=== PATIENT | female | born 1995 | race Caucasian/White ===

== ENCOUNTER 2023-06-21 15:13 | Outpatient (CLI) | payer OTHER, SELFPAY | END 2023-06-21 15:14 | disposition home or self-care (01) | PROVIDERS: PCP Family Medicine; Visit Provider Family Medicine | DX: Z00.00 Encounter for general adult medical examination without abnormal findings (principal); R53.83 Other fatigue; Z13.6 Encounter for screening for cardiovascular disorders | CPT/HCPCS: 80048; 80061; 84443 ==

== ENCOUNTER 2024-01-16 12:52 | Outpatient (CLI) | payer OTHER, SELFPAY ==
--- NOTE | 2024-01-16 13:00 | US_ITS ---
Patient: SALMA Zaman GONZALEZ Facility:?[facility] Patient ID:?[id number] Site Patient ID:?[id number]. Site :?[id number] Study:?US-OB Pelvis OB TV-01/16/2024 1:49:57 PM Ordering Physician:GOGO SIFUENTES CNM Final Report: INDICATION: Dating and viability. Technique: Transabdominal and transvaginal OB ultrasound. Findings : Single viable intrauterine gestation of 11 weeks and 5 days duration with an expected date of delivery 08/01/2024. heart rate 178 beats per minute and regular. [place]-rump length 4.9 cm and the mean diameter of the gestational sac 4.8 cm. The yolk sac measures 5.3 mm in diameter and is unremarkable. The right ovary measures 2.2 x 1.2 x 1.3 cm and the left ovary measures 2.9 x 1.4 x 1.4 cm. A corpus luteum cyst left ovary. IMPRESSION: 1. Single viable intrauterine gestation of 11 weeks and 5 days duration with an expected date of delivery 08/01/2024. 2. heart rate 178 beats per minute and regular. 3. [place]-rump length 4.9 cm and the mean diameter of the gestational sac 4.8 cm. Dictated by Yonas Clayton MD @ 01/17/2024 1:07:43 PM Signed by:?Yonas Clayton MD @01/17/2024 1:07:43 PM (Electronic Signature)
== END 2024-01-16 12:53 | disposition home or self-care (01) ==
LOC: US 12:52
PROVIDERS: PCP Family Medicine; Visit Provider Advanced Practice Midwife
DX: Z34.91 Encounter for supervision of normal pregnancy, unspecified, first trimester (principal); Z3A.11 11 weeks gestation of pregnancy
CPT/HCPCS: 76817

== ENCOUNTER 2024-01-16 14:43 | Outpatient (CLI) | payer OTHER, SELFPAY | END 2024-01-16 14:44 | disposition home or self-care (01) | LOC: NFLDREF 14:43 | PROVIDERS: PCP Family Medicine; Visit Provider Advanced Practice Midwife | DX: Z34.91 Encounter for supervision of normal pregnancy, unspecified, first trimester (principal); Z3A.11 11 weeks gestation of pregnancy | CPT/HCPCS: 84443; 86592; 86703; 86704; 86706; 86762; 86787; 86803; 86850; 86900; 86901; 87086; 87340 ==

== ENCOUNTER 2024-03-17 14:50 | Outpatient (CLI) | payer OTHER, SELFPAY ==
--- NOTE | 2024-03-17 15:00 | CRLHL7_ITS ---
For Patients: As a result of the Century Cures Act, medical imaging exams and procedure reports are released immediately into your electronic medical record. You may view this report before your referring provider. If you have questions, please contact your health care provider. OBSTETRICAL ULTRASOUND INDICATION: Encounter for supervision of normal . VARGAS by ULTRASOUND: 08/01/2024. GA: 20w 3d. COMPARISON: 01/16/2024. TECHNIQUE: Transabdominal pelvic ultrasound. FINDINGS: position: Vertex. Cervix: Visualized. Length of closed cervix: 3.2 cm. Placenta position: Anterior. Placenta tip to internal os: 0.9 cm. Umbilical cord: 3-vessel cord. Placental insertion: Central. Amniotic fluid: 4.9 cm SDP ANATOMY SURVEY: Observed Structures Cerebellum: 2.2 cm, 22 weeks 2 days. Cisterna magna: 6.0 mm. Nuchal fold: 6.5 mm. Lateral ventricle: 6.7 mm. CSP Midline falx Choroid plexus Spine Stomach Abdominal cord insert Urinary bladder Kidneys Diaphragm Nose/lips Orbital view Profile Upper extremities Lower extremities Hands Feet 4-chamber heart LVOT RVOT 3VV 3VTV Biometry: BPD: 4.6 cm, 20 weeks 0 days, 29%. HC: 17.2 cm, 19 weeks 5 days, 14%. AC: 14.9 cm, 20 weeks 1 day, 35%. FL: 3.3 cm, 20 weeks 2 days, 36%. FL/AC: 22.05%. HC/AC ratio: 1.15. heart rate: 147 bpm. age by this ultrasound: 20 weeks 3 days. VARGAS by this ultrasound: 08/01/2024. Estimated weight: 336 grams (- pounds 12 ounces). Percentile by VARGAS: 31%. IMPRESSION: 1. Measurements are consistent with dates. 2. Normal anatomic survey. 3. Low-lying anterior placenta located 9 mm from the cervical os. Follow-up recommended. Bjorn Kothari M.D. Body/Diagnostic Radiologist [email or web address] SP/Dictated by: Bjorn Kothari MD @ 03/18/2024 11:27:00 AM (Electronically Signed)
== END 2024-03-17 14:51 | disposition home or self-care (01) ==
LOC: US 14:50
PROVIDERS: PCP Family Medicine; Visit Provider Advanced Practice Midwife
DX: Z34.92 Encounter for supervision of normal pregnancy, unspecified, second trimester (principal); O44.42 Low lying placenta NOS or without hemorrhage, second trimester; Z3A.20 20 weeks gestation of pregnancy
CPT/HCPCS: 76805

== ENCOUNTER 2024-04-14 21:10 | Outpatient (CLI) | payer OTHER, SELFPAY ==
[2024-04-14 21:25] VITALS: BP 128/71; PULSE 75; TEMP 36.8
--- NOTE | 2024-04-14 22:33 | PC.OBNST ---
NST Note NST Note Start: 04/14/24 21:20 Freq: ONCE Status: Active Protocol: Document 04/14/24 22:31 MAYCOL (Rec: 04/14/24 22:32 MAYCOL [id number]) NST Note 1 Para (# of births) 0 EDC 08/01/24 Gestational Age In Weeks & Days 24 Weeks & 3 Days Patient Presented with Complaint(s) of Decreased movement Appropriate for Gestational Age Yes RN Daniel Raman, ACE Date 04/14/24 Appropriate for Gestational Age Yes ACE Kern RN Date 04/14/24 OB NST charge Yes Complete NST Note via Write Note Yes The provider's electronic signature indicates the NST is reactive/appropriate for gestational age. *Note to provider: If an addendum is required, open the patient's chart and click on the note under the Nurse/Allied Health tab.
== END 2024-04-14 21:52 | disposition home or self-care (01) ==
LOC: OB OUT 21:10 → OB 21:11
PROVIDERS: PCP Family Medicine; Visit Provider Advanced Practice Midwife
DX: O36.8120 Decreased fetal movements, second trimester, not applicable or unspecified (principal); Z3A.24 24 weeks gestation of pregnancy
CPT/HCPCS: 59025; G0463

== ENCOUNTER 2024-05-14 07:55 | Outpatient (CLI) | payer OTHER, SELFPAY | END 2024-05-14 07:56 | disposition home or self-care (01) | LOC: NFLDREF 07:56 | PROVIDERS: PCP Family Medicine; Visit Provider Midwife | DX: O26.899 Other specified pregnancy related conditions, unspecified trimester (principal); Z67.91 Unspecified blood type, Rh negative | CPT/HCPCS: 86592; 86850; J2791 ==

== ENCOUNTER 2024-05-15 11:46 | Outpatient (CLI) | payer OTHER, SELFPAY ==
[2024-05-15 11:56] VITALS: PULSE 71; O2SAT 99
[2024-05-15 11:57] VITALS: BP 127/75; PULSE 74; RESP 16; TEMP 36.5
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
== END 2024-05-15 12:42 | disposition home or self-care (01) ==
LOC: OB OUT 11:46 → OB 11:49
PROVIDERS: PCP Family Medicine; Visit Provider Advanced Practice Midwife
DX: O26.893 Other specified pregnancy related conditions, third trimester (principal); S39.91XA Unspecified injury of abdomen, initial encounter; Z3A.28 28 weeks gestation of pregnancy
CPT/HCPCS: 59025; G0463

== ENCOUNTER 2024-06-08 07:13 | Outpatient (CLI) | payer OTHER, SELFPAY ==
--- NOTE | 2024-06-08 07:15 | CRLHL7_ITS ---
For Patients: As a result of the Century Cures Act, medical imaging exams and procedure reports are released immediately into your electronic medical record. You may view this report before your referring provider. If you have questions, please contact your health care provider. INDICATION: 29 year-old female. Assess interval growth and placental location. TECHNIQUE: Transabdominal obstetrical ultrasound. COMPARISON: March 17, 2024. FINDINGS: There is a single living intrauterine in vertex presentation. The cervix is not well seen. Anterior placenta. The placental tip is 4.8 cm away from the internal cervical os, previously 0.9 cm. heart rate 138 beats per minute. Normal amniotic fluid volume. Single deepest pocket measurement 4.3 cm, previously 4.9 cm. biometric indices: Biparietal diameter 7.3 cm, 29 weeks 2 days, less than the 3rd percentile. Head circumference 28.15 cm, 30 weeks 6 days, less than the 3rd percentile. Abdominal circumference 27 cm, 31 weeks 0 days, 16th percentile. Femur length 6.4 cm, 32 weeks 6 days, 55th percentile. Composite calculated ultrasound age 31 weeks 0 days with a sonographic due date of August 10, 2024. Estimated weight 1771 g which lies at the 17th percentile. The head to abdominal circumference ratio is within normal limits at 1.04 (0.96-1.17). IMPRESSION: 1. Single living intrauterine in vertex presentation. Anterior placenta without placenta previa or marginal placenta. 2. Normal amniotic fluid volume. 3. Composite calculated ultrasound age 31 weeks 0 days with a sonographic due date of August 10, 2024. 4. Please note the biometric indices indicate that the biparietal diameter and head circumference are below the 3rd percentile. Dictated by Julio Lewis MD @ 06/08/2024 10:27:26 AM (Electronically Signed)
--- OUTSIDE RECORDS SUMMARY | 2024-06-08 07:15 | XMS_ITS | Encounter Summary ---
Author Organization [facility] Address [address] [address] Phone Care Team Providers Care Utility Gelatin Maker Name Role Phone Elsewhere, Pcp Unavailable Unavailable Encounter Details Date Type Department Care Team (Late st Contact Info) Description 05/31/2024 Scanned - Medical Reports [facility] [address] [place], [place] [id number] Abstract, Provider, Social History Tobacco Use Types Packs/Day Years Used Date Smoking Tobacco: Never Assessed Estimated Date of Delivery Comme nts Yes 08/01/2024 Based on Other B asis Sex and Gender Information Value Date Recorded Sex Assigned at Female 05/30/2024 2:04 PM CDT Gender Identity Female 05/30/2024 2:04 PM CDT Sexual Orientation Straight 05/30/2024 2: 04 PM CDT Job Start Date Occupation Industry Not on file Not on file Not on file documented as of this encounter Plan of Treatment Not on file documented as of this encounter Procedures Procedure Name Priority Date/Time Associated Diagnosis Comments NON-STRESS TEST Routine 05/30/2024 12:30 PM CDT documented in this encounter Results * NON-STRESS TEST (05/30/2024 12:30 PM CDT) Provider Abstract EC PROCEDURES documented in this encounter Visit Diagnoses Not on filedocumented in this encounter Care Teams Utility Gelatin Maker Relationship Specialty Start Date End Date Elsewhere, Pcp 05/30/24 documented as of this encounter
--- OUTSIDE RECORDS SUMMARY | 2024-06-08 07:15 | XMS_ITS | Clinical Summary ---
Author Organization [facility] Address [address] [address] Phone Care Team Providers Care Auto Headlight Mechanic Name Role Phone Elsewhere, Pcp Unavailable Unavailable Encounters Date Type Department Care Team Description 05/31/2024 Scanned - Medical Reports [facility] HIS [address] [place] [address] Abstract, ProviderMD 05/30/2024 2:04 PM CDT - 05/30/2024 3:51 PM CDT Hospital Encounter [facility] [address] [place] [address] Yi De La Paz MD Discharge Disposition: Home and/or Self Care from Last 3 Months Social History Tobacco Use Types Packs/Day Years [...] file Not on file Not on file Obstetrics History Para Term AB IAB SAB Ectopic Molar Multiple Living Live Births 1 Date Outcome GA Total Labor Labor/2nd/3rd Weight Sex Type Anes PTL Mary Alice A1 A5 Name Clin Current Summary Episode Dates Number of Fetuses Estimated Date of Delivery 05/30/2024 - Present (06/08/2024) 1 08/01/2024 (set by Cheyenne Carr RN on 05/30/2024 based on Other Basis) Dating Summary Based On VARGAS GA Diff Other Basis 08/01/2024 Working Vitals Date GA Fund Present FHR Mvmt BP Weight Edema Alb Glu Ket Dil/ Eff/Sta 4 31w0d Inpatient data not displayed here. See encounter summary. Notes Progress Notes - Hospital En counter - 05/30/2024 - GA:31w0d 05/30/2024 - d - Cheyenne Rivera RN Amnisure negative. Reactive NST. Urine sent to lab. Provider will followup on results. Order to discharge. Cheyenne Carr RN 05/30/2024 - d - Yi De La Paz MD NON-STRESS TEST Anupama is a 29 year old at 31w0d who presented today with/for rule out SROM . An NST was obtained. Non-stress test interpretation: FHT Baseline: 120 Accelerations: present Decelerations: absent Variability: moderate Duration of monitorin - 1521 Yi De La Paz MD 05/30/2024 - - Cehyenne Rivera RN Patient reports to family birthplace with complaints of leaking of clear fluid. Denies vaginal bleeding and contractions. Reports good movement. Placed on EFM and amnisure obtained. Vitals within normal limits. Cheyenne Carr RN Plan of Treatment Health Maintenance Due Date Last Done Comments Cervical Cancer Screening 1994 Last pap w/ HPV Testing 1994 Last pap w/o HPV Testing 1994 Hepatitis B Vaccine (Standin g Order) (1 of 3 - 19+ 3-dose series) 2013 PERTUSSIS (Standing Order) 2013 TETANUS (Standing Order) 2013 TDAP in 05/02/2024 Influenza Vaccine Seasonal (Standing Order) (#1) 2024 HPV Vaccine (Standing Order) Aged Out No longer eligible based on patient's age to complete this topic Pneumococcal/PCV20 Vaccine: Pediatrics (2-5 yrs) and At-Risk Patients (6-64 yrs) (Standing Order) Aged Out No longer eligible b ased on patient's age to complete this topic Procedures Procedure Name Priority Date/Time Associated Diagnosis Comments URINALYSIS, REFLEX TO CULTURE Routine 05/30/2024 3:09 PM CDT PLACENTAL ALPHA MICROGLOBULIN-1, ROM Routine 05/30/2024 2:21 PM CDT NON-STRESS TEST Routine 05/30/2024 12:30 PM CDT from Last 3 Months Results * (ABNORMAL) URINALYSIS, REFLEX TO CULTURE (05/30/2024 3:09 PM CDT) Urine Color Yellow Straw, Yellow, Lyubov 05/30/2024 3:16 PM CDT [facility] Urine Appearance Clear Clear 05/30/2024 3:16 PM CDT [facility] Urine Specific [place] 1.020 1.003 - 1.035 05/30/2024 3:16 PM CDT [facility] Urine pH 7.0 5.0 - 8.0 05/30/2024 3:16 PM CDT [facility] Urine Glucose Negative Negative 05/30/2024 3:16 PM CDT [facility] Urine Ketones Trace(A) Negative 05/30/2024 3:16 PM CDT [facility] Urine Protein Negative Negative, Trace mg/dL 05/30/2024 3:16 PM CDT [facility] Urine Nitrites Negative Negative 05/30/2024 3:16 PM CDT [facility] Urine Leukocyte Esterase Negative Negative 05/30/2024 3:16 PM CDT [facility] Urine URINE SPECIMEN COLLECTION, CLEAN CATCH / Unknown Non-blood collection / Unknown 05/30/2024 3:09 PM CDT 05/30/2024 3:14 PM CDT Narrative [facility] - 05/30/2024 3:16 PM CDT A routine urine not reflexing to a Microscopic exam means the dipstick blood test is negative. A Urine Culture is not indicated. Yi De La Paz MD EC URINE ORDERABLES Performing Organization Address [facility] Co de Phone Number [facility] [address] * PLACENTAL ALPHA MICROGLOBULIN-1, ROM (05/30/2024 2:21 PM CDT) Placental Alpha Microglobin-1 Negative Negative 05/30/2024 2:56 PM CDT [facility] Swab VAGINAL SWAB / Unknown Non-blood collection / Unknown 05/30/2024 2:21 PM CDT 05/30/2024 2:56 PM CDT Yi De La Paz MD EC CHEMISTRY ORDERAB LES Performing Organization Address [facility] Co de Phone Number [facility] [address] * NON-STRESS TEST (05/30/2024 12:30 PM CDT) Provider Abstract MD FERRERA PROCEDURES from Last 3 Months Care Teams Auto Headlight Mechanic Relationship Specialty Start Date End Date Elsewhere, Pcp 05/30/24
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
== END 2024-06-08 07:14 | disposition home or self-care (01) ==
PROVIDERS: PCP Family Medicine; Visit Provider Midwife
DX: O44.43 Low lying placenta NOS or without hemorrhage, third trimester (principal); Z3A.31 31 weeks gestation of pregnancy
CPT/HCPCS: 76816

== ENCOUNTER 2024-07-02 11:35 | Outpatient (CLI) | payer OTHER, SELFPAY ==
--- OUTSIDE RECORDS SUMMARY | 2024-07-06 07:34 | XMS_ITS | Clinical Summary ---
Author Organization [facility] Address [address] [address] Phone Care Team Providers Care Keno Attendant Name Role Phone Elsewhere, Pcp Unavailable Unavailable Encounters Date Type Department Care Team Description 05/31/2024 Scanned - Medical Reports [facility] [address] [place] [address] Abstract, ProviderMD 05/30/2024 2:04 PM CDT - 05/30/2024 3:51 PM CDT Hospital Encounter [facility] [address] [place] [address] Yi De La Paz MD Discharge Disposition: [...] Estimated Date of Delivery 05/30/2024 - Present (07/06/2024) 1 08/01/2024 (set by Cheynene Carr RN on 05/30/2024 based on Other [...] De La Paz MD 05/30/2024 - - Cheyenne Rivera RN Patient reports to family birthplace [...] Straw, Yellow, Lyubov 05/30/2024 3:16 PM CDT [facility] Urine Appearance Clear Clear 05/30/2024 3:16 PM CDT [facility] Urine Specific [place] 1.020 1.003 - 1.035 05/30/2024 3:16 PM CDT [facility] Urine pH 7.0 5.0 - 8.0 05/30/2024 3:16 PM CDT [facility] Urine Glucose Negative Negative 05/30/2024 3:16 PM CDT [facility] Urine Ketones Trace(A) Negative 05/30/2024 3:16 PM CDT [facility] Urine Protein Negative Negative, Trace mg/dL 05/30/2024 3:16 PM CDT [facility] Urine Nitrites Negative Negative 05/30/2024 3:16 PM CDT [facility] Urine Leukocyte Esterase Negative Negative 05/30/2024 3:16 PM CDT [facility] Urine URINE SPECIMEN COLLECTION, CLEAN CATCH / Unknown Non-blood collection / Unknown 05/30/2024 3:09 PM CDT 05/30/2024 3:14 PM CDT Narrative [facility] - 05/30/2024 3:16 PM CDT A routine urine not reflexing to a Microscopic exam means the dipstick blood test is negative. A Urine Culture is not indicated. Yi De La Paz MD EC URINE ORDERABLES Performing Organization Address [facility] Co de Phone Number [facility] [address] * PLACENTAL ALPHA MICROGLOBULIN-1, ROM (05/30/2024 2:21 PM CDT) Placental Alpha Microglobin-1 Negative Negative 05/30/2024 2:56 PM CDT [facility] Swab VAGINAL SWAB / Unknown Non-blood collection / Unknown 05/30/2024 2:21 PM CDT 05/30/2024 2:56 PM CDT Yi De La Paz MD EC CHEMISTRY ORDERAB LES Performing Organization Address [facility] Co de Phone Number [facility] [address] * NON-STRESS TEST (05/30/2024 12:30 PM CDT) Provider Abstract MD FERRERA PROCEDURES from Last 3 Months Care Teams Keno Attendant Relationship Specialty Start Date End Date Elsewhere, Pcp 05/30/24
--- OUTSIDE RECORDS SUMMARY | 2024-07-06 07:34 | XMS_ITS | Encounter Summary ---
Author Organization [facility] Address [address] [address] Phone Care Team Providers Care Manager Of Human Resources Name Role Phone Elsewhere, Pcp Unavailable Unavailable Reason for Visit * Reason Comments Vaginal Discharge * Auth/Cert (Routine) Specialty Diagnoses / Procedures Referred By Taiwo t Referred To [place] [id number] [place] [phone] Referral ID Status Reason Start Date Expiration Date Visits Re quested Visits Authorized [id number] 1 1 Encounter Details Date Type Department Care Team (Latest Contact Info) Description 05/30/2024 2:04 PM CDT - 05/30/2024 3:51 PM CDT Hospital Encounter [facility] [address] [place] [address] [phone] Yi De La Paz [place] [id number] [place] [phone] Discharge Disposition: Home and/or Self Care [...] Straw, Yellow, Lyubov 05/30/2024 3:16 PM CDT [facility] Urine Appearance Clear Clear 05/30/2024 3:16 PM CDT [facility] Urine Specific [place] 1.020 1.003 - 1.035 05/30/2024 3:16 PM CDT [facility] Urine pH 7.0 5.0 - 8.0 05/30/2024 3:16 PM CDT [facility] Urine Glucose Negative Negative 05/30/2024 3:16 PM CDT [facility] Urine Ketones Trace(A) Negative 05/30/2024 3:16 PM CDT [facility] Urine Protein Negative Negative, Trace mg/dL 05/30/2024 3:16 PM CDT [facility] Urine Nitrites Negative Negative 05/30/2024 3:16 PM CDT [facility] Urine Leukocyte Esterase Negative Negative 05/30/2024 3:16 PM CDT [facility] Urine URINE SPECIMEN COLLECTION, CLEAN CATCH / Unknown Non-blood collection / Unknown 05/30/2024 3:09 PM CDT 05/30/2024 3:14 PM CDT Narrative [facility] - 05/30/2024 3:16 PM CDT A routine urine not reflexing to a Microscopic exam means the dipstick blood test is negative. A Urine Culture is not indicated. Yi De La Paz MD EC URINE ORDERABLES [facility] [address] [place] [address] * PLACENTAL ALPHA MICROGLOBULIN-1, ROM (05/30/2024 2:21 PM CDT) Placental Alpha Microglobin-1 Negative Negative 05/30/2024 2:56 PM CDT [facility] Swab VAGINAL SWAB / Unknown Non-blood collection / Unknown 05/30/2024 2:21 PM CDT 05/30/2024 2:56 PM CDT Yi De La Paz MD EC CHEMISTRY ORDERAB LES [facility] [address] [place] [address] documented in this encounter Visit Diagnoses Not on filedocumented in this encounter Orders Admission Count Last Ordered Date First Orde red Date ASSIGN TO OUTPATIENT 1 05/30/2024 Discharge Count Last Ordered Date First Orde red Date DISCHARGE PATIENT 1 05/30/2024 documented in this encounter Care Teams Manager Of Human Resources Relationship Specialty Start Date End Date Elsewhere, Pcp 05/30/24 documented as of this encounter
--- OUTSIDE RECORDS SUMMARY | 2024-07-06 07:34 | XMS_ITS | Encounter Summary ---
Author Organization [facility] Address [address] [address] Phone Care Team Providers Care Painting Machine Operator Name Role Phone Elsewhere, Pcp Unavailable Unavailable Encounter Details Date Type Department Care Team (Late st Contact Info) Description 05/31/2024 Scanned - Medical Reports [facility] [address] [place], [place] [phone] Abstract, Provider, Social History Tobacco Use Types [...] on filedocumented in this encounter Care Teams Painting Machine Operator Relationship Specialty Start Date End Date Elsewhere, Pcp 05/30/24 documented as of this encounter
== END 2024-07-02 11:36 | disposition home or self-care (01) ==
LOC: NFLDREF 07-06 07:32
PROVIDERS: PCP Family Medicine; Referring Provider Family Medicine; Visit Provider Advanced Practice Midwife
DX: Z34.03 Encounter for supervision of normal first pregnancy, third trimester (principal)
CPT/HCPCS: 87081; 87653

== ENCOUNTER 2024-07-28 13:34 | Outpatient (CLI) | payer OTHER, SELFPAY ==
[2024-07-28] VITALS (11 sets, daily range): BP systolic 127–133; BP diastolic 74–86; PULSE 81–98; RESP 18; TEMP 36.8; O2SAT 98
--- OUTSIDE RECORDS SUMMARY | 2024-07-28 13:38 | XMS_ITS | Encounter Summary ---
Author Organization [facility] Address [address] [address] Phone Care Team Providers Care Internal Grinding Machine Operator Name Role Phone Elsewhere, Pcp Unavailable Unavailable Encounter Details Date Type Department Care Team (Late st Contact Info) Description 05/31/2024 Scanned - Medical Reports [facility] [address] [place], [place] [address] Abstract, Provider, Social History Tobacco Use Types [...] on filedocumented in this encounter Care Teams Internal Grinding Machine Operator Relationship Specialty Start Date End Date Elsewhere, Pcp 05/30/24 documented as of this encounter
--- OUTSIDE RECORDS SUMMARY | 2024-07-28 13:38 | XMS_ITS | Clinical Summary ---
Author Organization [facility] Address [address] [address] Phone Care Team Providers Care Size Stamper Name Role Phone Elsewhere, Pcp Unavailable Unavailable Encounters Date Type Department Care Team Description 05/31/2024 Scanned - Medical Reports [facility] HIS [address] [place] [address] Abstract, ProviderMD 05/30/2024 2:04 PM CDT - 05/30/2024 3:51 PM CDT Hospital Encounter [facility] [address] [place] [address] Yi De La Paz MD Discharge Disposition: [...] Estimated Date of Delivery 05/30/2024 - Present (07/28/2024) 1 08/01/2024 (set by Cheyenne Carr RN on 05/30/2024 based on Other Basis) Dating Summary Based On VARGAS GA Diff Other Basis 08/01/2024 Working Vitals Date GA Fund Present FHR Mvmt BP Weight Edema Alb Glu Ket Dil/ Eff/Sta 31w0d Inpatient data not displayed here. See encounter summary. Notes Progress Notes - Hospital En counter - 05/30/2024 - GA:31w0d 05/30/2024 - - Cheyenne Rivera RN Amnisure negative. Reactive NST. Urine sent to lab. Provider will followup on results. Order to discharge. Cheyenne Carr RN 05/30/2024 - - Yi De La Paz MD NON-STRESS [...] TETANUS (Standing Order) 2013 TDAP in 05/02/2024 COVID-19 Vaccine (2022-2 4 season) 2024 Influenza Vaccine Seasonal (Standing Order) (#1) 2024 [...] Straw, Yellow, Lyubov 05/30/2024 3:16 PM CDT [facility] Urine Appearance Clear Clear 05/30/2024 3:16 PM CDT [facility] Urine Specific [place] 1.020 1.003 - 1.035 05/30/2024 3:16 PM CDT [facility] Urine pH 7.0 5.0 - 8.0 05/30/2024 3:16 PM CDT [facility] Urine Glucose Negative Negative 05/30/2024 3:16 PM CDT [facility] Urine Ketones Trace(A) Negative 05/30/2024 3:16 PM CDT [facility] Urine Protein Negative Negative, Trace mg/dL 05/30/2024 3:16 PM CDT [facility] Urine Nitrites Negative Negative 05/30/2024 3:16 PM CDT [facility] Urine Leukocyte Esterase Negative Negative 05/30/2024 3:16 PM CDT [facility] Urine URINE SPECIMEN COLLECTION, CLEAN CATCH / Unknown Non-blood collection / Unknown 05/30/2024 3:09 PM CDT 05/30/2024 3:14 PM CDT Narrative [facility] - 05/30/2024 3:16 PM CDT A routine urine not reflexing to a Microscopic exam means the dipstick blood test is negative. A Urine Culture is not indicated. Yi De La Paz MD EC URINE ORDERABLES Performing Organization Address [facility] Co de Phone Number [facility] [phone] [place] [address] * PLACENTAL ALPHA MICROGLOBULIN-1, ROM (05/30/2024 2:21 PM CDT) Placental Alpha Microglobin-1 Negative Negative 05/30/2024 2:56 PM CDT [facility] Swab VAGINAL SWAB / Unknown Non-blood collection / Unknown 05/30/2024 2:21 PM CDT 05/30/2024 2:56 PM CDT Yi De La Paz MD EC CHEMISTRY ORDERAB LES Performing Organization Address [facility] Co de Phone Number [facility] [address] * NON-STRESS TEST (05/30/2024 12:30 PM CDT) Provider Abstract EC PROCEDURES from Last 3 Months Care Teams Size Stamper Relationship Specialty Start Date End Date Elsewhere, Pcp 05/30/24
--- OUTSIDE RECORDS SUMMARY | 2024-07-28 13:38 | XMS_ITS | Encounter Summary ---
Author Organization [facility] Address [address] [address] Phone Care Team Providers Care Pole Cutter Name Role Phone Elsewhere, Pcp Unavailable Unavailable Reason for Visit * Reason Comments Vaginal Discharge * Auth/Cert (Routine) Specialty Diagnoses / Procedures Referred By Taiwo t Referred To Contact Yi [place] Paz [place] [id number] [place] [phone] Referral ID Status Reason Start Date Expiration Date Visits Re quested Visits Authorized [id number] 1 1 Encounter Details Date Type Department Care Team (Latest Contact Info) Description 05/30/2024 2:04 PM CDT - 05/30/2024 3:51 PM CDT Hospital Encounter [facility] [address] [place] [address] [phone] Yi De La Paz [place] [id number] [place] [phone] Discharge Disposition: Home and/or Self Care [...] Code Departure Means Destination Home and/or Self Fdc documented in this encounter Progress Notes * [...] Straw, Yellow, Lyubov 05/30/2024 3:16 PM CDT [facility] Urine Appearance Clear Clear 05/30/2024 3:16 PM CDT [facility] Urine Specific [place] 1.020 1.003 - 1.035 05/30/2024 3:16 PM CDT [facility] Urine pH 7.0 5.0 - 8.0 05/30/2024 3:16 PM CDT [facility] Urine Glucose Negative Negative 05/30/2024 3:16 PM CDT [facility] Urine Ketones Trace(A) Negative 05/30/2024 3:16 PM CDT [facility] Urine Protein Negative Negative, Trace mg/dL 05/30/2024 3:16 PM CDT [facility] Urine Nitrites Negative Negative 05/30/2024 3:16 PM CDT [facility] Urine Leukocyte Esterase Negative Negative 05/30/2024 3:16 PM CDT [facility] Urine URINE SPECIMEN COLLECTION, CLEAN CATCH / Unknown Non-blood collection / Unknown 05/30/2024 3:09 PM CDT 05/30/2024 3:14 PM CDT Narrative [facility] - 05/30/2024 3:16 PM CDT A routine urine not reflexing to a Microscopic exam means the dipstick blood test is negative. A Urine Culture is not indicated. Yi De La Paz MD EC URINE ORDERABLES [facility] [address] [place] [address] * PLACENTAL ALPHA MICROGLOBULIN-1, ROM (05/30/2024 2:21 PM CDT) Placental Alpha Microglobin-1 Negative Negative 05/30/2024 2:56 PM CDT [facility] Swab VAGINAL SWAB / Unknown Non-blood collection / Unknown 05/30/2024 2:21 PM CDT 05/30/2024 2:56 PM CDT Yi De La Paz MD EC CHEMISTRY ORDERAB LES [facility] [address] [place] [address] documented in this encounter Visit Diagnoses Not on filedocumented in this encounter Orders Admission Count Last Ordered Date First Orde red Date ASSIGN TO OUTPATIENT 1 05/30/2024 Discharge Count Last Ordered Date First Orde red Date DISCHARGE PATIENT 1 05/30/2024 documented in this encounter Care Teams Pole Cutter Relationship Specialty Start Date End Date Elsewhere, Pcp 05/30/24 documented as of this encounter
[2024-07-28 14:31] LABS: Hematocrit 32.3 % (33.0-51.0); Hemoglobin* 10.4 gm/dL (12.0-16.0); Mean Corpuscular HGB Conc 32 gm/dL (32-36); Mean Corpuscular Hemoglobin 26 pg (26-34); Mean Corpuscular Volume 82 fL (80-100); Platelet Count* 289 K/uL (140-440); Red Blood Count 3.96 m/uL (4.00-5.20); White Blood Count* 11.27 K/uL (4.50-11.00)
[2024-07-28 14:35] LABS: Slide Review Reflex No
[2024-07-28 14:53] LABS: Alanine Aminotransferase* 19 U/L (4-35); Aspartate Amino Transferase* 26 U/L (12-35); Blood Urea Nitrogen* 9 mg/dL (5-24); Creatinine* 0.6 mg/dL (0.5-1.5); Estimated Glomerular Filt Rate 124 ml/min
[2024-07-28 15:12] LABS: Total Protein Urine 6 mg/dL
[2024-07-28 15:13] LABS: Creatinine Urine 165.3 mg/dL; Protein Creatinine Ratio Urine 0.04 (0-0.19)
--- NOTE | 2024-07-28 19:01 | PC.OBNST ---
NST Note NST Note Start: 07/28/24 13:50 Freq: ONCE Status: Discharge Protocol: Document 07/28/24 16:17 Irma (Rec: 07/28/24 16:20 DESTIN [id number]) NST Note 1 EDC 08/01/24 Gestational Age In Weeks & Days 39 Weeks & 3 Days Patient Presented with Complaint(s) of Other Other Complaints Pt here for Pre-E rule out Reactive Yes Appropriate for Gestational Age Yes RN Jerri Dodge RN Date 07/28/24 Reactive Yes Appropriate for Gestational Age Yes ACE Mcclellan RN Date 07/28/24 OB NST charge Yes Complete NST Note via Write Note Yes The provider's electronic signature indicates the NST is reactive/appropriate for gestational age. *Note to provider: If an addendum is required, open the patient's chart and click on the note under the Nurse/Allied Health tab.
== END 2024-07-28 15:50 | disposition home or self-care (01) ==
LOC: OB OUT 13:35 → OB 13:35
PROVIDERS: PCP Family Medicine; Visit Provider Advanced Practice Midwife
DX: Z34.93 Encounter for supervision of normal pregnancy, unspecified, third trimester (principal); Z3A.39 39 weeks gestation of pregnancy
CPT/HCPCS: 36415; 59025; 82565; 82570; 84156; 84450; 84460; 84520; 85027; G0463

== ENCOUNTER 2024-08-04 02:26 | Inpatient (IN) | payer OTHER, SELFPAY ==
[2024-08-04] VITALS (41 sets, daily range): BP systolic 99–142; BP diastolic 50–85; PULSE 79–111; RESP 16–20; TEMP 36.4–37.5; O2SAT 94–100; BMI 36.7
--- OUTSIDE RECORDS SUMMARY | 2024-08-04 01:29 | XMS_ITS | Encounter Summary ---
Author Organization [facility] Address [address] [address] Phone Care Team Providers Care Manufacturing Storeperson Name Role Phone Elsewhere, Pcp Unavailable Unavailable Reason for Visit * Reason Comments Vaginal Discharge * Auth/Cert (Routine) Specialty Diagnoses / Procedures Referred By Taiwo t Referred To Contact Yi [place] P[place] [id number] [place] [phone] Referral ID Status Reason Start Date Expiration Date Visits Re quested Visits Authorized [id number] 1 1 Encounter Details Date Type Department Care Team (Latest Contact Info) Description 05/30/2024 2:04 PM CDT - 05/30/2024 3:51 PM CDT Hospital Encounter [facility] [address] [place] [address] [phone] Yi De [place] Paz [place] [id number] [place] [phone] Discharge Disposition: Home and/or Self Care [...] Code Departure Means Destination Home and/or Self Nursing Home documented in this encounter Progress Notes * [...] Straw, Yellow, Lyubov 05/30/2024 3:[address] [facility] Urine Appearance Clear Clear 05/30/2024 3:[address] [facility] Urine Specific [place] 1.020 1.003 - 1.035 05/30/2024 3:[address] [facility] Urine pH 7.0 5.0 - 8.0 05/30/2024 3:[address] [facility] Urine Glucose Negative Negative 05/30/2024 3:[address] [facility] Urine Ketones Trace(A) Negative 05/30/2024 3:[address] [facility] Urine Protein Negative Negative, Trace mg/dL 05/30/2024 3:[address] [facility] Urine Nitrites Negative Negative 05/30/2024 3:[address] [facility] Urine Leukocyte Esterase Negative Negative 05/30/2024 3:[address] [facility] Urine URINE SPECIMEN COLLECTION, CLEAN CATCH / Unknown Non-blood collection / Unknown 05/30/2024 3:09 PM CDT 05/30/2024 3:[address] [facility] - 05/30/2024 3:16 PM CDT A routine urine not reflexing to a Microscopic exam means the dipstick blood test is negative. A Urine Culture is not indicated. Yi De La Paz MD EC URINE ORDERABLES [facility] [address] [place] [address] * PLACENTAL ALPHA MICROGLOBULIN-1, ROM (05/30/2024 2:21 PM CDT) Placental Alpha Microglobin-1 Negative Negative 05/30/2024 2:[address] [facility] Swab VAGINAL SWAB / Unknown Non-blood collection / Unknown 05/30/2024 2:21 PM CDT 05/30/2024 2:56 PM CDT Yi De La Paz MD EC CHEMISTRY ORDERAB LES [facility] [address] [place] [address] documented in this encounter Visit Diagnoses Not on filedocumented in this encounter Orders Admission Count Last Ordered Date First Orde red Date ASSIGN TO OUTPATIENT 1 05/30/2024 Discharge Count Last Ordered Date First Orde red Date DISCHARGE PATIENT 1 05/30/2024 documented in this encounter Care Teams Manufacturing Storeperson Relationship Specialty Start Date End Date Elsewhere, Pcp 05/30/24 documented as of this encounter
--- OUTSIDE RECORDS SUMMARY | 2024-08-04 01:29 | XMS_ITS | Clinical Summary ---
Author Organization [facility] Address [address] [address] Phone Care Team Providers Care Air Control Electronics Operator Name Role Phone Elsewhere, Pcp Unavailable Unavailable Encounters Date Type Department Care Team Description 05/31/2024 Scanned - Medical Reports [facility] HIS [address] [place] [address] Abstract, ProviderMD 05/30/2024 2:04 PM CDT - 05/30/2024 3:51 PM CDT Hospital Encounter [facility] [address] [place] [address] Yi De La Paz MD Discharge Disposition: [...] Estimated Date of Delivery 05/30/2024 - Present (08/04/2024) 1 08/01/2024 (set by Cheeynne Carr RN on 05/30/2024 based on Other [...] Straw, Yellow, Lyubov 05/30/2024 3:16 PM CDT [facility] Urine Appearance Clear Clear 05/30/2024 3:16 PM CDT [facility] Urine Specific [place] 1.020 1.003 - 1.035 05/30/2024 3:16 PM CDT [facility] Urine pH 7.0 5.0 - 8.0 05/30/2024 3:16 PM CDT [facility] Urine Glucose Negative Negative 05/30/2024 3:16 PM CDT [facility] Urine Ketones Trace(A) Negative 05/30/2024 3:16 PM CDT [facility] Urine Protein Negative Negative, Trace mg/dL 05/30/2024 3:16 PM CDT [facility] Urine Nitrites Negative Negative 05/30/2024 3:16 PM CDT [facility] Urine Leukocyte Esterase Negative Negative 05/30/2024 3:16 PM CDT [facility] Urine URINE SPECIMEN COLLECTION, CLEAN CATCH / Unknown Non-blood collection / Unknown 05/30/2024 3:09 PM CDT 05/30/2024 3:14 PM CDT Narrative [facility] - 05/30/2024 3:16 PM CDT A routine urine not reflexing to a Microscopic exam means the dipstick blood test is negative. A Urine Culture is not indicated. Yi De La Paz MD EC URINE ORDERABLES Performing Organization Address [facility] Co de Phone Number [facility] [phone] [place] [address] * PLACENTAL ALPHA MICROGLOBULIN-1, ROM (05/30/2024 2:21 PM CDT) Placental Alpha Microglobin-1 Negative Negative 05/30/2024 2:56 PM CDT [facility] Swab VAGINAL SWAB / Unknown Non-blood collection / Unknown 05/30/2024 2:21 PM CDT 05/30/2024 2:56 PM CDT Yi De La Paz MD EC CHEMISTRY ORDERAB LES Performing Organization Address [facility] Co de Phone Number [facility] [address] * NON-STRESS TEST (05/30/2024 12:30 PM CDT) Provider Abstract EC PROCEDURES from Last 3 Months Care Teams Air Control Electronics Operator Relationship Specialty Start Date End Date Elsewhere, Pcp 05/30/24
--- OUTSIDE RECORDS SUMMARY | 2024-08-04 01:29 | XMS_ITS | Encounter Summary ---
Author Organization [facility] Address [address] [address] Phone Care Team Providers Care Pumper Hand Name Role Phone Elsewhere, Pcp Unavailable Unavailable Encounter Details Date Type Department Care Team (Late st Contact Info) Description 05/31/2024 Scanned - Medical Reports [facility] [address] [place], [place] [phone] Abstract, Provider, Social History Tobacco Use Types [...] on filedocumented in this encounter Care Teams Pumper Hand Relationship Specialty Start Date End Date Elsewhere, Pcp 05/30/24 documented as of this encounter
[2024-08-04 02:36] LABS: Amnisure Rom* Negative
--- NOTE | 2024-08-04 03:00 | P.OBHP_ITS ---
OB - H&P: HPI Labor/Induction History of Present Illness Time Seen by Provider: 03:00 Date Seen: 08/04/24 Chief Complaint: The patient is a 29 year old 1 para 0 at 40 weeks gestation by 11wk , who presents with spontaneous labor. Had planned a waterbirth but now desires epidural. Here with partner Paul. Her full history and physical was dictated by Jace Good CNM on 07/16/2024.? Please see this for details.? ? Chief complaint: Maternity Narrative: Anupama Weeks is a 29 year old female Specific Issues/Plans Partner: Paul Its a girl! - Low-lying placenta 0.9cm from OS US at 28-32 weeks-ordered 32 wk US -resolved -Rh negative Rhogam at 28 wks, Paul is A+, rhogam given 28w - Hx of THC use Has not used since last fall, no UDS at NOB - Varicella non-immune recommend vaccine PP Flu given 07/30 History of Present Dating criteria: based on 1st trimester US only Ultrasounds: normal 1st trimester US Abnormal ultrasound findings: On anatomy survey, there was a concern for small HC and low lying placenta, both of which resolved by subsequent growth scan. See radiology report for details. Labs Blood type: A (-) negative GBS status: negative Review of Systems Status of ROS: Reports: 6 or more systems reviewed and unremarkable except as noted in History and below Meds Home Medications and Allergies Home Medications ?Medication ?Instructions ?Recorded ?Confirmed ?Type calcium carbonate (Calcium 600) 600 mg PO QDAY 01/16/24 08/04/24 History ferrous sulfate 325 mg (65 mg 325 mg PO QDAY 01/16/24 08/04/24 History iron) tablet (Feosol) vitamins no.154-ferrous 1 tab PO DAILY 01/16/24 08/04/24 History fumarate 27 mg-folic acid 1 mg tablet pyridoxine (vitamin B6) 25 mg 25 mg PO QDAY 02/11/24 08/04/24 History tablet aspirin 81 mg chewable tablet 81 mg PO QDAY 03/17/24 08/04/24 History doxylamine succinate 25 mg tablet 25 mg PO QHS PRN 07/02/24 08/04/24 History (Unisom (doxylamine)) Allergies Allergy/AdvReac Type Severity Reaction Status Date / Time No Known Drug Allergies Allergy Verified 07/30/24 09:59 OB - H&P: Exam Physical Exam: Vital signs: Temp Pulse Resp BP Pulse Ox 99.1 F 83 18 134/85 97 08/04/24 01:58 08/04/24 01:48 08/04/24 01:58 08/04/24 01:48 08/04/24 01:51 Narrative: Vitals per EMR? Psychiatric:? Alert and oriented x3? HEENT:? Normocephalic, atraumatic? Neck:? Supple without adenopathy or thyromegaly? Lungs:? Clear to auscultation bilaterally? Heart:? Regular rate and rhythm, no murmur, rub or gallop? Abdomen:? Soft, nontender, and gravid? Extremities:? No edema or erythema? Pelvic:? SVE: 7cm/100%/-0? Membrane status:? intact? presentation:? vertex? FHT:? Moderate Variability.? Positive Accels.? Intermittent early Decels. Baseline 145.? [place]:? Ctx Q3min? OB - Problem Based A/P Additional Plan (1) : Status: Acute (2) Pain during labor: Status: Acute (3) Rh negative state in antepartum period: Status: Acute Plan 1. Desires water . Consent signed. Hep C negative.? 2. Candidate for analgesia of choice. Planning unmedicated .? 3. Monitor blood pressures. Consider labs if elevated.? 4. Anticipate ? 5. Expectant management at this time.? 6. IV started and prep for epidural per pt preference. Delivery/Labor/Induction Plan Plan: expectant management
[2024-08-04] MEDS: LACTATED RINGERS 1000 ML 1,000 ML 1200 ML IV (03:10)
[2024-08-04 03:17] LABS: Basophils Percent Auto 0.2 % (0.0-3.0); Eosinophils Percent Auto 0.3 % (0.0-7.0); Hematocrit 35.5 % (33.0-51.0); Hemoglobin* 11.9 gm/dL (12.0-16.0); Immature Granulocytes Pct Auto 0.6 %; Lymphocytes Percent Auto 12.4 % (20-44); Mean Corpuscular HGB Conc 34 gm/dL (32-36); Mean Corpuscular Hemoglobin 26 pg (26-34); Mean Corpuscular Volume 79 fL (80-100); Monocytes Percent Auto 5.2 % (0.0-11.0); Neutrophils Percent Auto 81.3 % (42.0-72.0); Platelet Count* 358 K/uL (140-440); RDW Coefficient of Variation % 14.7 % (11.5-15.5); White Blood Count* 15.12 K/uL (4.50-11.00)
[2024-08-04 03:18] LABS: Slide Review Reflex No
[2024-08-04] MEDS: ROPIVACAINE 0.2 % PF 10 ML INJ 20 MG EPIDURAL (04:08)
[2024-08-04] MEDS: ROPIVACAINE 0.2% 100 ml 100 ML 12 MG EPIDURAL (04:08)
[2024-08-04] MEDS: LIDOCAINE 2% (PF) 5 ML VIAL EPIDURAL (04:08)
--- NOTE | 2024-08-04 04:08 | PM.ANBPRC ---
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, unspecified, in remission (ICD-10) Surgical History S/P LASIK surgery of both eyes ?Z98.890 - Other specified postprocedural states (ICD-10) History of wisdom tooth extraction ?K08.409 - Partial loss of teeth, unspecified cause, unspecified class (ICD-10) Family History Mother Heart disease Thyroid disease Maternal Grandfather Colon cancer Paternal Grandmother Skin cancer Social History Narrative: SOCIAL Education: Bachelors degree Work: Dental admin assistant Partner: Paul, [employer] Tacker for sex offenders Lives with: Paul Pets: 2 cats and 2 dog, encourage partner to change litter box Abuse: Denies past/present (partner present) Special Diet: Denies Ok with a blood transfusion: yes Culture or hinduism beliefs: denies RISK FACTORS Exercise Times/wk: Lift weights 4-6x per week and walking Hx of Depression and/or Anxiety/other mood disorder: undiagnosed mild anxiety Seat Belt Use: Routinely Smoking: Denies past/present Alcohol/day: Denies while ; Occasional/social/rare Caffeine: Coffee 1-2 per day Drug Use: Denies present; Social THC user (Last use August 2023) Chicken Pox: vaccinated MRSA: Denies What is your current living situation?: I presently have a place to live Problems where you live: no known problems In the past 12 months, utilities in danger of being shut off: no In past 12 months, lack of transportation kept you from medical appts, meetings, work, or getting things needed for daily living: no In the past 12 mos, have been you worried that your food would run out before you had money to buy more?: never true In the past 12 mos, the food you bought just didn't last and you didn't have money to buy more?: never true Smoking Status: Never smoker How often does anyone, including family, friends and others, physically hurt you: never How often does anyone, including family, friends and others, insult or talk down to you: never How often does anyone, including family, friends and others, threaten you with harm: never How often does anyone, including family, friends and others, scream or curse at you: never Little interest or pleasure in doing things: not at all Feeling down, depressed, or hopeless: not at all Meds Home Medications and Allergies Home Medications ?Medication ?Instructions ?Recorded ?Confirmed ?Type calcium carbonate (Calcium 600) 600 mg PO QDAY 01/16/24 08/04/24 History ferrous sulfate 325 mg (65 mg 325 mg PO QDAY 01/16/24 08/04/24 History iron) tablet (Feosol) vitamins no.154-ferrous 1 tab PO DAILY 01/16/24 08/04/24 History fumarate 27 mg-folic acid 1 mg tablet pyridoxine (vitamin B6) 25 mg 25 mg PO QDAY 02/11/24 08/04/24 History tablet aspirin 81 mg chewable tablet 81 mg PO QDAY 03/17/24 08/04/24 History doxylamine succinate 25 mg tablet 25 mg PO QHS PRN 07/02/24 08/04/24 History (Unisom (doxylamine)) Allergies Allergy/AdvReac Type Severity Reaction Status Date / Time No Known Drug Allergies Allergy Verified 07/30/24 09:59 Results Labs Labs: Laboratory Results - last 24 hr 08/04/24 08/04/24 01:55 03:08 WBC 15.12 H RBC 4.50 Hgb 11.9 L Hct 35.5 MCV 79 L MCH 26 MCHC 34 RDW Coeff of Aminata 14.7 Plt Count 358 Neut % (Auto) 81.3 H Lymph % (Auto) 12.4 L [place] % (Auto) 5.2 Eos % (Auto) 0.3 Baso % (Auto) 0.2 Neut # (Auto) 12.30 H Lymph # (Auto) 1.90 [place] # (Auto) 0.80 Eos # (Auto) 0.00 Baso # (Auto) 0.00 Abs Immat Gran (auto) 0.10 Imm/Tot Granulo (auto) 0.6 Membrane Rupture Negative Vital Signs Vital Signs: Last Vital Signs Temp 98.4 F 08/04/24 03:25 Pulse 96 08/04/24 04:05 Resp 20 08/04/24 03:25 BP 113/55 L 08/04/24 04:05 Pulse Ox 99 08/04/24 04:04 Weight: 68.039 kg Height: 162.56 cm Anesthesia Procedures Epidural Insertion Patient Location: OB Start Time: 03:45 Stop Time: 04:08 Start Date: 08/04/24 Stop Date: 08/04/24 Reason for Block: procedure for pain Patient Position: sitting Performed By: Shad Damon Preanesthetic Checklist: IV checked, risks and benefits discussed, surgical consent, monitors and equipment checked, pre-op evaluation, timeout performed and anesthesia consent Prep: chlorhexidine gluconate Monitoring: blood pressure monitoring, continuous pulse oximetry and heart rate Approach: midline Vertebral Space: lumbar (1-5) Epidural Technique: SONG air Needle Type: Tuohy needle Injection Technique: continuous catheter Needle gauge: 17 Needle Length (cm): 10 cm Needle Insertion Depth (cm): 7 Catheter Gauge: 19 Catheter Type: multi-orifice Catheter at skin depth (cm): 13 Test Dose Result: negative and lidocaine 1.5% with epinephrine 1 to 200,000
[2024-08-04] MEDS: PHENYLEPHRINE 100 MCG/ML SYRINGE IVP (04:15)
[2024-08-04] MEDS: LACTATED RINGERS 500 ML 500 ML 125 ML IV (04:31)
--- NOTE | 2024-08-04 06:39 | PM.OBPNL ---
Subjective Time Seen by Provider: 06:30 Date Seen: 08/04/24 Narrative: Anupama is coping well with contractions and has spontaneous urge to push. Supported by partner Paul and sister. Objective Exam: VSS.NAD. Vital Signs: Last Vital Signs Temp 99.5 F 08/04/24 06:35 Pulse 111 H 08/04/24 06:36 Resp 18 08/04/24 06:35 BP 111/69 08/04/24 06:36 Pulse Ox 100 08/04/24 04:19 Pelvic Exam Dilation (cm): 10 Effacement (%): 100 Station: +2 Contractions Monitor mode: External Contraction Frequency: q3min Contraction pattern: Regular Contraction intensity: Strong/Firm Assessment Assessment: active labor Station: +2 Amniotic Membrane Status: SROM Status: Category ll Heart Rate Baseline: 155 Police Booking Officer Variability: Moderate (6-25) Monitor Accelerations: Episodic Monitor Decelerations: Early Labor Progress: Normal progress in spontaneous labor. Effective maternal pushing efforts. Plan Plan: Continue to monitor FHR closely. Anticipate . Report to Isabel Orozco CNM, assuming care for the pt at 0700.
[2024-08-04] MEDS: OXYTOCIN 30 unit/500 ML in NS 30 UNIT/500 ML BAG 300 UNIT IVPB (06:58)
--- NOTE | 2024-08-04 07:18 | W.PM.OBVAGDE ---
OB Procedure Vag Delivery Mother Details Mother Details: The patient is a 29 year-old, 1, Para 1, admitted on 08/04/24 at 40w3d gestation in spontaneous labor. : 1 Para: 1 Weeks Gestation: 40.3 Admission Date: 08/04/24 Additional Details Amniotic Membrane Status: SROM Amniotic Membrane Rupture Date: 08/04/24 Amniotic Membrane Rupture Time: 03:30 Amniotic Membrane Fluid Description: Clear (Terminal meconium noted with of body) Analgesia/Anesthesia Type: Epidural Waterbirth: No Pitcoin: No Intrapartal Events: None Labor Onset: 21:00 Complete: 05:07 Pushin:08 Heart: heart tones during second stage were category 2 with moderate variability and early decels in second stage. Delivery Details Delivery Date: 08/04/24 Delivery Time: 06:55 Route of delivery: Infant Gender: Female Infant Viability: Alive; Heart Rate Present Position at Delivery: OA Delivery Details: Patient was admitted for spontaneous labor and progressed normally. SROM noted in the waterbirth tub at approximately 0330 with clear fluid. Patient was complete at 0507 and pushing at 0508. of a viable female at 0655 in BALDEV with R nuchal hand. Vertex delivered OA. No nuchal cord or shoulder. Body delivered easily and without incident. Infant passed to mothers abdomen with a vigorous cry. Cord was clamped and cut at > 3 minutes. APGARS were 8 at one minute and 9 at five minutes respectively. Intact placenta with a 3 vessel cord delivered spontaneously at 0703. Fundus firm. Small vaginal laceration hemostatic and well approximated, not repaired. ~1.5cm hematoma on L labia minora. EBL 150 cc. Mother and baby stable; mother plans to breastfeed. weight pending.? 1 Minute Interval Total Score: 8 5 Minute Interval Total Score: 9 Additional Details Shoulder Dystocia: No Placenta Delivery Time: 07:03 Placental Delivery Description: Spontaneous Procedure Done: Global Blood Loss: 150 Laceration: Vaginal - 1st Degree (Hemostatic and well approximated. Small hematoma ~1.5cm on L labia minora. ) Episiotomy Description: None Bakri Used: No Sponge/Need Count Correct: Yes Cord Vessel Description: 3 Vessels Event Summary Status: Mother and were stable after delivery. Disposition: floor
[2024-08-04] MEDS: ACETAMINOPHEN 500 MG TABLET 1000 MG PO ×2 (09:43→19:34)
[2024-08-04] MEDS: DOCUSATE SODIUM 100 MG CAPSULE PO (09:44)
[2024-08-04] MEDS: IBUPROFEN 600 MG TABLET PO (15:58)
[2024-08-05] MEDS: IBUPROFEN 600 MG TABLET PO ×2 (00:15→10:05)
[2024-08-05 00:16] VITALS: BP 125/81; PULSE 80; RESP 20; TEMP 36.6; O2SAT 96
[2024-08-05 05:07] VITALS: BP 124/79; PULSE 77; RESP 16; TEMP 36.6; O2SAT 97
--- NOTE | 2024-08-05 07:29 | PM.OBDSVD1 ---
DS: Providers Provider Date Seen: 08/05/24 Date of admission: 08/04/24 02:26 Primary care physician: Man Patricio MD Admitting Clinician: Nora Botello CNM Attending Physician on discharge: Sujatha Isabel CNM DS: Diagnosis Discharge Diagnosis (1) care and examination immediately after delivery: Status: Acute (2) Lactating mother: Status: Acute Exam Narrative: Exam Narrative: GENERAL APPEARANCE:? normal affect, alert, no distress MOOD:? appropriate CHEST:? clear to auscultation HEART:? regular rate and rhythm ABDOMEN:? soft, non-tender the uterine fundus is At Umbilicus, Midline and is appropriate for the stage of recovery. PERINEUM:? mild edema of the perineum, there is a Perineal Laceration,?1st degree, that is healing well. EXTREMITIES:? normal and no edema Const: Vital Signs, click to edit/add: Vital Signs - 24 hr 08/04/24 07:36 08/04/24 07:51 08/04/24 08:06 Temperature Pulse Rate 91 90 91 Pulse Rate [Pulse Oximeter] Respiratory Rate Blood Pressure 106/63 112/65 118/66 Blood Pressure [Le ft Arm] Pulse Oximetry Oxygen Delivery Me thod 08/04/24 08:21 08/04/24 08:36 08/04/24 08:51 Temperature Pulse Rate 106 H 99 97 Pulse Rate [Pulse Oximeter] Respiratory Rate Blood Pressure 121/71 129/70 112/63 Blood Pressure [Le ft Arm] Pulse Oximetry Oxygen Delivery Me thod 08/04/24 11:55 08/04/24 15:53 08/04/24 20:21 Temperature 97.6 F 98.1 F 97.9 F Pulse Rate Pulse Rate [Pulse Oximeter] 81 79 91 Respiratory Rate 16 16 20 Blood Pressure Blood Pressure [Le ft Arm] 110/68 107/70 123/80 Pulse Oximetry 96 97 97 Oxygen Delivery Me thod Room Air Room Air Room Air 08/05/24 00:16 08/05/24 05:07 Temperature 98 F 97.9 F Pulse Rate Pulse Rate [Pulse Oximeter] 80 77 Respiratory Rate 20 16 Blood Pressure Blood Pressure [Le ft Arm] 125/81 124/79 Pulse Oximetry 96 97 Oxygen Delivery Me thod Room Air Room Air OB - DS: Summary Hospital Course Hospital Course: Anupama is a 29 y.o. G 1 P 1 who was admitted to [facility] for spontaneous onset of labor. ?She had a NVD that was uncomplicated. The patient feels well. ?The pain is well controlled with current medications. ?She has no new complaints. ?She is breast feeding and reports things are going well. the patient has done well.? Vitals have been stable.? She has remained afebrile.? Has a good appetite, is tolerating a general diet. ?She is voiding without difficulty.? She is passing gas and has not had a bowel movement.? She is ambulating and denies any dizziness.? Has small amount of rubra lochia. She is planning condoms for prevention. Problems: none plan: Discharge home with baby. Follow up in 2 weeks and 6 weeks. , may see if needed Hgb 11.9. Peripartum Data delivery method: Vaginal Laceration description: Perineal - 1st Degree complications: none Gender: Female Infant Discharge Plan: Home Status at Discharge Functional status at discharge: independent ambulation Overall status at discharge: patient is progressing back to baseline Time Spent with Patient Time attestation: Total time spent providing and/or coordinating discharge services: Time spent: Less than 30 minutes Discharge Plan Discharge Disposition: Home, Self-Care Date of Admission: 08/04/24 02:26 Attending Provider on Discharge: Sujatha Isabel Primary Care Provider: Man Patricio Condition: Stable Anticipated Discharge Date/Time: 08/05/24 12:00 Discharge Medications: New docusate sodium 100 mg Capsule 100 mg PO DAILY Qty: 90 0RF ibuprofen 600 mg Tablet 600 mg PO Q6H PRNQty: 60 0RF acetaminophen 500 mg Tablet 1,000 mg PO Q6H PRNQty: 0 0RF Continued PNV no.154-iron fumarate-folic 27 mg iron- 1 mg tablet 1 tab PO DAILY calcium carbonate [Calcium 600] 600 mg calcium (1,500 mg) tablet 600 mg PO QDAY ferrous sulfate [Feosol] 325 mg (65 mg iron) tablet 325 mg PO QDAY pyridoxine (vitamin B6) 25 mg tablet 25 mg PO QDAY Unisom (doxylamine) 25 mg tablet 25 mg PO QHS PRN Discontinued aspirin 81 mg tablet,chewable 81 mg PO QDAY Discharge Orders: Discharge Order (Routine); Ordered 08/05/24 Ordered By: Sujatha Isabel Patient Education: OB Over the Counter Medication Information, OB Vaginal/Breast Feeding Additional Instructions: Discharge instructions were reviewed with the patient including signs and symptoms of infection and home going medications Nothing vaginally for 6 weeks: no tampons or intercourse Off Work or School for 6 weeks 2-week visit: discuss infant feeding concerns, review control options and screen for anxiety/depression. 6-week visit for an annual exam. consultation services are available to all mothers and babies for the first year after delivery.? To make an appointment, please call [phone]. Activity Level: Activity as Tolerated Discharge Diet: Regular Follow Up Appointments: [facility] [Provider Group] Forms: [employer] Info Instructions
[2024-08-05 08:00] VITALS: BP 141/89; PULSE 72; RESP 18; TEMP 36.7; O2SAT 98
[2024-08-05] MEDS: DOCUSATE SODIUM 100 MG CAPSULE PO (10:05)
[2024-08-05] MEDS: ACETAMINOPHEN 500 MG TABLET 1000 MG PO (11:13)
[2024-08-05 11:17] VITALS: BP 115/81
--- NOTE | 2024-08-05 12:30 | PC.NURSE ---
Patient discharged home with , sister and baby. Encouraged patient to stay one more night to help with . Patient felt it was going better and prefers to get home and get into routine.
--- NOTE | 2024-08-05 13:50 | PM.ANPOST ---
Post Anesthesia Note Post Anesthesia Note Patient seen: Inpatient Respiratory Status: adequate Cardiovascular Status: adequate Mental Status: baseline Pain: adequate Temp: baseline Anesthetic awareness: N/A Complications: none Follow care: none
[2024-08-06 11:04] LABS: Rapid Plasma Reagin (RPR) Non Reactive (Non Reactive)
== END 2024-08-05 13:10 | disposition home or self-care (01) | DRG 807 ==
LOC: OB OUT 02:26 → OB 02:26
PROVIDERS: Admitting Provider Advanced Practice Midwife; PCP Family Medicine; Visit Provider Advanced Practice Midwife
DX: O70.0 First degree perineal laceration during delivery (principal); Z37.0 Single live birth; O26.893 Other specified pregnancy related conditions, third trimester; Z3A.40 40 weeks gestation of pregnancy; Z67.11 Type A blood, Rh negative; Z78.9 Other specified health status; F12.91 Cannabis use, unspecified, in remission; O71.82 Other specified trauma to perineum and vulva
CPT/HCPCS: 01967; 36415; 84112; 85025; 86592; 86850; 86870; 86880; 86900; 86901; A9270; J2371; J2795; J7120

== ENCOUNTER 2024-08-20 12:48 | Outpatient (CLI) | payer OTHER, SELFPAY ==
--- OUTSIDE RECORDS SUMMARY | 2024-08-20 12:51 | XMS_ITS | Encounter Summary ---
Author Organization [facility] Address [address] [address] Phone Care Team Providers Care Casino Banker Name Role Phone Elsewhere, Pcp Unavailable Unavailable Encounter Details Date Type Department Care Team (Late st Contact Info) Description 05/31/2024 Scanned - Medical Reports [facility] [address] [place], [place] [id number] Abstract, Provider, Social History Tobacco Use Types Packs/Day Years Used Date Smoking Tobacco: Never Assessed Estimated Date of Delivery Comme nts Yes 08/01/2024 Based on Other B asis Sex and Gender Information Value Date Recorded Sex Assigned at Female 05/30/2024 2:04 PM CDT Legal Sex Female 2:04 PM CDT Gender Identity Female 05/30/2024 2:04 PM CDT Sexual Orientation Straight 05/30/2024 2 :04 PM CDT documented as of this encounter Plan of Treatment Not on file documented as of this encounter Procedures Procedure Name Priority Date/Time Associated Diagnosis Comments NON-STRESS TEST Routine 05/30/2024 12:30 PM CDT documented in this encounter Results * NON-STRESS TEST (05/30/2024 12:30 PM CDT) us Provider Abstract EC PROCEDURES Final Resul t documented in this encounter Visit Diagnoses Not on filedocumented in this encounter Care Teams Casino Banker Relationship Specialty Start Date End Date Elsewhere, Pcp 05/30/24 documented as of this encounter
--- OUTSIDE RECORDS SUMMARY | 2024-08-20 12:51 | XMS_ITS | Encounter Summary ---
Author Organization [employer] [facility] Address [address] [address] Phone Care Team Providers Care Engineer/Conductor Name Role Phone Elsewhere, Pcp Unavailable Unavailable Reason for Visit * Reason Comments Vaginal Discharge * Auth/Cert (Routine) Specialty Diagnoses / Procedures Referred By Taiwo t Referred To Contact Yi [place] P[place] [id number] [place] [phone] Phone: tel: fax: Referral ID Status Reason Start Date Expiration Date Visits Re quested Visits Authorized [id number] 1 1 Encounter Details Date Type Department Care Team (Latest Contact Info) Description 05/30/2024 2:04 PM CDT - 05/30/2024 3:51 PM CDT Hospital Encounter [facility] [address] [place] [id number] [place] [id number] [place] [address] Discharge Disposition: Home and/or Self Care [...] Orientation Straight 05/30/2024 2: 04 PM CDT documented as of this encounter Discharge Disposition Disposition Code Departure Means Destination Home and/or Self [facility] documented in this encounter Progress Notes * [...] Straw, Yellow, Lyubov 05/30/2024 3:16 PM CDT [facility] Urine Appearance Clear Clear 05/30/2024 3:16 PM CDT [facility] Urine Specific [place] 1.020 1.003 - 1.035 05/30/2024 3:16 PM CDT [facility] Urine pH 7.0 5.0 - 8.0 05/30/2024 3:16 PM CDT [facility] Urine Glucose Negative Negative 05/30/2024 3:16 PM CDT [facility] Urine Ketones Trace(A) Negative 05/30/2024 3:16 PM CDT [facility] Urine Protein Negative Negative, Trace mg/dL 05/30/2024 3:16 PM CDT [facility] Urine Nitrites Negative Negative 05/30/2024 3:16 PM CDT [facility] Urine Leukocyte Esterase Negative Negative 05/30/2024 3:16 PM CDT [facility] Urine URINE SPECIMEN COLLECTION, CLEAN CATCH / Unknown Non-blood collection / Unknown 05/30/2024 3:09 PM CDT 05/30/2024 3:14 PM CDT Narrative [facility] - 05/30/2024 3:16 PM CDT A routine urine not reflexing to a Microscopic exam means the dipstick blood test is negative. A Urine Culture is not indicated. us Yi De La Paz MD EC URINE ORDERABLES Final Resu lt [facility] [address] * PLACENTAL ALPHA MICROGLOBULIN-1, ROM (05/30/2024 2:21 PM CDT) Placental Alpha Microglobin-1 Negative Negative 05/30/2024 2:56 PM CDT [facility] Swab VAGINAL SWAB / Unknown Non-blood collection / Unknown 05/30/2024 2:21 PM CDT 05/30/2024 2:56 PM CDT us Yi De La Paz MD EC CHEMISTRY ORDERABLES Final Result [facility] [address] [phone], [facility] documented in this encounter Visit Diagnoses Not on filedocumented in this encounter Orders Admission Count Last Ordered Date First Orde red Date ASSIGN TO OUTPATIENT 1 05/30/2024 Discharge Count Last Ordered Date First Orde red Date DISCHARGE PATIENT 1 05/30/2024 documented in this encounter Care Teams Engineer/Conductor Relationship Specialty Start Date End Date Elsewhere, Pcp 05/30/24 documented as of this encounter
--- OUTSIDE RECORDS SUMMARY | 2024-08-20 12:51 | XMS_ITS | Clinical Summary ---
Author Organization [facility] Address [address] [address] Phone Care Team Providers Care Database Dba Name Role Phone Elsewhere, Pcp Unavailable Unavailable Encounters Date Type Department Care Team Description 05/31/2024 Scanned - Medical Reports [facility] [address] [place] [address] Abstract, ProviderMD 05/30/2024 2:04 PM CDT - 05/30/2024 3:51 PM CDT Hospital Encounter [facility] [address] [place] [address] Yi De La Paz MD Discharge Disposition: [...] Orientation Straight 05/30/2024 2: 04 PM CDT Obstetrics History Para Term AB IAB SAB Ectopic Molar Multiple Living Live Births 1 Date Outcome GA Total Labor Labor/2nd/3rd Weight Sex Type Anes PTL Mary Alice A1 A5 Name Clin Current Summary Episode Dates Number of Fetuses Estimated Date of Delivery 05/30/2024 - Present (08/20/2024) 1 08/01/2024 (set by Cheyenne Carr RN on 05/30/2024 based on Other Basis) Dating Summary Based On VARGAS GA Diff Other Basis 08/01/2024 Working Vitals Date GA Fund Present FHR Mvmt BP Weight Edema Alb Glu Ket Dil/ Eff/Sta 4 31w0d Inpatient data not displayed here. See encounter summary. Notes Progress Notes - Hospital En counter - 05/30/2024 - GA:31w0d 05/30/2024 - w0d - Cheyenne Rivera RN Amnisure negative. Reactive NST. Urine sent to lab. Provider will followup on results. Order to discharge. Cheyenne Carr RN 05/30/2024 - d - Yi De La Paz MD NON-STRESS TEST Salma is a 29 year old at 31w0d [...] Order) 2013 TDAP in 05/02/2024 COVID-19 Vaccine (2023-2 5 season) 2024 Influenza Vaccine Seasonal (Standing Order) [...] Straw, Yellow, Lyubov 05/30/2024 3:16 PM CDT [facility] Urine Appearance Clear Clear 05/30/2024 3:16 PM CDT [facility] Urine Specific [place] 1.020 1.003 - 1.035 05/30/2024 3:16 PM CDT [facility] Urine pH 7.0 5.0 - 8.0 05/30/2024 3:16 PM CDT [facility] Urine Glucose Negative Negative 05/30/2024 3:16 PM CDT [facility] Urine Ketones Trace(A) Negative 05/30/2024 3:16 PM CDT [facility] Urine Protein Negative Negative, Trace mg/dL 05/30/2024 3:16 PM CDT [facility] Urine Nitrites Negative Negative 05/30/2024 3:16 PM CDT [facility] Urine Leukocyte Esterase Negative Negative 05/30/2024 3:16 PM CDT [facility] Urine URINE SPECIMEN COLLECTION, CLEAN CATCH / Unknown Non-blood collection / Unknown 05/30/2024 3:09 PM CDT 05/30/2024 3:14 PM CDT Narrative [facility] - 05/30/2024 3:16 PM CDT A routine urine not reflexing to a Microscopic exam means the dipstick blood test is negative. A Urine Culture is not indicated. Yi De La Paz MD EC URINE ORDERABLES Final Resu lt Performing Organization Address [facility] Co de Phone Number [facility] [address] * PLACENTAL ALPHA MICROGLOBULIN-1, ROM (05/30/2024 2:21 PM CDT) Placental Alpha Microglobin-1 Negative Negative 05/30/2024 2:56 PM CDT [facility] Swab VAGINAL SWAB / Unknown Non-blood collection / Unknown 05/30/2024 2:21 PM CDT 05/30/2024 2:56 PM CDT Yi De La Paz MD EC CHEMISTRY ORDERABLES Final Result Performing Organization Address [facility] de Phone Number [facility] [address] [place] [address] * NON-STRESS TEST (05/30/2024 12:30 PM CDT) Provider Abstract EC PROCEDURES Final Resul t from Last 3 Mon[address] Insurance [address] [place] [phone] Care Teams Database Dba Relationship Specialty Start Date End Date Elsewhere, Pcp 05/30/24
--- NOTE | 2024-08-20 15:04 | W.PM.LAC.MC ---
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, unspecified, in remission (ICD-10) Delivery Information Delivery type: Vaginal Gestational Age: 40+3 Gestational Weight For Age: AGA Weight: 3.09 kg Discharge Weight: 3.022 kg Percentage weight loss: 2.2 Baby's Information Baby's Age at Visit: 16 days Baby's Provider or Clinic: [facility] Jaundice: No Past Experience Past Experience: No Current Frequency of Day Feedings: had been every 3, now every 2-2.5 as trying to get baby's weight up Frequency of Night Feedings: had been every 4-6, now every 2-2.5 as above Both Breasts: Yes Suck: strong Latch: comfortable, mom thinks wide and deep Length of Time: average 8min ea side, range 4-12 min Goals: 1 year Pumping Pumping: Yes (not for a few days now) Supplementing EBM Supplement: No Formula Supplement: No Baby Elimination Number of Wet Diapers a Day: ea feeding Number of BM a Day: 6-7/day, yellow and seedy but just a smear on the diaper Breast/Nipple Condition Breast Information: Breasts are symmetrical with rounded lower quadrants, intramammary distance is less than 1.5 inches. No erythema. Nipples are supple, everted prior to feeding. Breast Shape: Round Engorgement: Yes (has this initially, now it's resolved) Maternal Nipple Condition - Left: Short Maternal Nipple Condition - Right: Short Sore Nipples: No Baby Assessment Skin: Normal Tongue/frenulum: Restricted mid-range (can move tongue over gum line, but mom feels it slide back during nursing) Palate: Average Lips: Relaxed and Symmetrical Jaw Alignment: Symmetrical Mucosa: [place], moist Onsite Observation Pre-Feed weight: 2.946 kg (down 24gms from last clinic visit; and down 2.5 oz from yesterday at [facility] per mom) Post-Feed weight: 2.996 kg Milk Transferred (mL): 50 (nursed 12 min ea breast; needed breast compression on both sides to stay engaged in feeding and have audible swallowing) Position: Cross cradle Attachment/latch-on achieved: Easily Suck pattern: Extended rest phase, lots of stimulation to keep baby nursing (Baby got sleepy after 5-6 min of nursing, with breast compression picked up on sucking pattern and audible swallows) Swallow: Audible, consistent (with breast compression) Pre-Nursing Left Nipple: Within Normal Limits Pre-Nursing Right Nipple: Within Normal Limits Post-Nursing Left Nipple: Within Normal Limits Post-Nursing Right Nipple: Within Normal Limits Assessments/Interventions Education provided: Asymmetric latch technique for wide/deep latch to increase milk, Transfer for baby and increase comfort for mom, Supply/demand nature of milk supply, Need for frequent stimulation/milk removal, Pumping for milk management (Recommend mom pump 2-3 times a day to stimulate supply; especially after first morning feed) and Milk collection, storage Feeding Plan: Feed baby every 2-2.5 hours during the day, every 3 hours at night so all can get some sleep. As start supplementing, baby should still feed every 2.5-3 hours to help build milk supply Breast compression to keep baby more actively engaged in the feeding and increased milk flow to baby Offer baby 1/2 oz pumped milk (or formula if needed) for complete feeding given weight loss; more if baby still acts hungry. Mom has some frozen milk at home to start with Mom to pump 3 times a day as able to stimulate supply and have EBM for baby Follow-Up Recommend baby be seen by provider for:: Keep check up in 1 day for weight check Appt with Dr. Vyas to evaluate for tongue tie release given issue with milk transfer Recommend mom be seen by provider for:: 2 week check for eval of bleeding (bright red at times, no clots, no cramping) and mood. Mom weepy during some of the visit; we discussed baby blues vs. depression and feelings of guilt, how to tell the difference. Time Spent Time spent with patient (min): 90 (reviewing EMR and face to face with mom and baby) Meds Home Medications and Allergies Home Medications ?Medication ?Instructions ?Recorded ?Confirmed ?Type calcium carbonate (Calcium 600) 600 mg PO QDAY 01/16/24 08/04/24 History ferrous sulfate 325 mg (65 mg 325 mg PO QDAY 01/16/24 08/04/24 History iron) tablet (Feosol) vitamins no.154-ferrous 1 tab PO DAILY 01/16/24 08/04/24 History fumarate 27 mg-folic acid 1 mg tablet pyridoxine (vitamin B6) 25 mg 25 mg PO QDAY 02/11/24 08/04/24 History tablet doxylamine succinate 25 mg tablet 25 mg PO QHS PRN 07/02/24 08/04/24 History (Unisom (doxylamine)) Allergies Allergy/AdvReac Type Severity Reaction Status Date / Time No Known Drug Allergies Allergy Verified 07/30/24 09:59
== END 2024-08-20 12:49 | disposition home or self-care (01) ==
LOC: OB LAC 12:49
PROVIDERS: PCP Family Medicine; Visit Provider Obstetrics & Gynecology
DX: Z39.1 Encounter for care and examination of lactating mother (principal)
CPT/HCPCS: G0463

== ENCOUNTER 2024-08-21 11:13 | Outpatient (CLI) | payer OTHER, SELFPAY ==
--- OUTSIDE RECORDS SUMMARY | 2024-08-24 12:36 | XMS_ITS | Encounter Summary ---
Author Organization [employer] [facility] Address [address] [address] Phone Care Team Providers Care Fishing Instructor Name Role Phone Elsewhere, Pcp Unavailable Unavailable Reason for Visit * Reason Comments Vaginal Discharge * Auth/Cert (Routine) Specialty Diagnoses / Procedures Referred By Taiwo t Referred To [place] [id number] [place] [id number] Phone: tel: fax: Referral ID Status Reason Start Date Expiration Date Visits Re quested Visits Authorized [id number] 1 1 Encounter Details Date Type Department Care Team (Latest Contact Info) Description 05/30/2024 2:04 PM CDT - 05/30/2024 3:51 PM CDT Hospital Encounter [facility] [address] [place] [id number] [place] [id number] [place] [address] Discharge Disposition: Home and/or Self [...] Code Departure Means Destination Home and/or Self Residential documented in this encounter Progress Notes * [...] Straw, Yellow, Lyubov 05/30/2024 3:16 PM CDT [facility] Urine Appearance Clear Clear 05/30/2024 3:16 PM CDT [facility] Urine Specific [place] 1.020 1.003 - 1.035 05/30/2024 3:16 PM CDT [facility] Urine pH 7.0 5.0 - 8.0 05/30/2024 3:16 PM CDT [facility] Urine Glucose Negative Negative 05/30/2024 3:16 PM CDT [facility] Urine Ketones Trace(A) Negative 05/30/2024 3:16 PM CDT [facility] Urine Protein Negative Negative, Trace mg/dL 05/30/2024 3:16 PM CDT [facility] Urine Nitrites Negative Negative 05/30/2024 3:16 PM CDT [facility] Urine Leukocyte Esterase Negative Negative 05/30/2024 3:16 PM CDT [facility] Urine URINE SPECIMEN COLLECTION, CLEAN CATCH / Unknown Non-blood collection / Unknown 05/30/2024 3:09 PM CDT 05/30/2024 3:14 PM CDT Narrative [facility] - 05/30/2024 3:16 PM CDT A routine urine not reflexing to a Microscopic exam means the dipstick blood test is negative. A Urine Culture is not indicated. us Yi De La Paz MD EC URINE ORDERABLES Final Resu lt [facility] [address] * PLACENTAL ALPHA MICROGLOBULIN-1, ROM (05/30/2024 2:21 PM CDT) Placental Alpha Microglobin-1 Negative Negative 05/30/2024 2:56 PM CDT [facility] Swab VAGINAL SWAB / Unknown Non-blood collection / Unknown 05/30/2024 2:21 PM CDT 05/30/2024 2:56 PM CDT us Yi De La Paz MD EC CHEMISTRY ORDERABLES Final Result [facility] [id number], [facility] documented in this encounter Visit Diagnoses Not on filedocumented in this encounter Orders Admission Count Last Ordered Date First Orde red Date ASSIGN TO OUTPATIENT 1 05/30/2024 Discharge Count Last Ordered Date First Orde red Date DISCHARGE PATIENT 1 05/30/2024 documented in this encounter Care Teams Fishing Instructor Relationship Specialty Start Date End Date Elsewhere, Pcp 05/30/24 documented as of this encounter
--- OUTSIDE RECORDS SUMMARY | 2024-08-24 12:36 | XMS_ITS | Clinical Summary ---
Author Organization [facility] Address [address] [address] Phone Care Team Providers Care Data Conversion Developer Name Role Phone Elsewhere, Pcp Unavailable Unavailable Encounters Date Type Department Care Team Description 05/31/2024 Scanned - Medical Reports [facility] [address] [place] [address] Abstract, ProviderMD 05/30/2024 2:04 PM CDT - 05/30/2024 3:51 PM CDT Hospital Encounter [facility] [address] [place] [address] Yi De La Paz MD Discharge Disposition: [...] Estimated Date of Delivery 05/30/2024 - Present (08/24/2024) 1 08/01/2024 (set by Cheyenne Carr RN [...] Straw, Yellow, Lyubov 05/30/2024 3:16 PM CDT [facility] Urine Appearance Clear Clear 05/30/2024 3:16 PM CDT [facility] Urine Specific [place] 1.020 1.003 - 1.035 05/30/2024 3:16 PM CDT [facility] Urine pH 7.0 5.0 - 8.0 05/30/2024 3:16 PM CDT [facility] Urine Glucose Negative Negative 05/30/2024 3:16 PM CDT [facility] Urine Ketones Trace(A) Negative 05/30/2024 3:16 PM CDT [facility] Urine Protein Negative Negative, Trace mg/dL 05/30/2024 3:16 PM CDT [facility] Urine Nitrites Negative Negative 05/30/2024 3:16 PM CDT [facility] Urine Leukocyte Esterase Negative Negative 05/30/2024 3:16 PM CDT [facility] Urine URINE SPECIMEN COLLECTION, CLEAN CATCH / Unknown Non-blood collection / Unknown 05/30/2024 3:09 PM CDT 05/30/2024 3:14 PM CDT Narrative [facility] - 05/30/2024 3:16 PM CDT A routine urine not reflexing to a Microscopic exam means the dipstick blood test is negative. A Urine Culture is not indicated. Yi De La Paz MD EC URINE ORDERABLES Final Resu lt Performing Organization Address [facility] Co de Phone Number [facility] [address] * PLACENTAL ALPHA MICROGLOBULIN-1, ROM (05/30/2024 2:21 PM CDT) Placental Alpha Microglobin-1 Negative Negative 05/30/2024 2:56 PM CDT [facility] Swab VAGINAL SWAB / Unknown Non-blood collection / Unknown 05/30/2024 2:21 PM CDT 05/30/2024 2:56 PM CDT Yi De La Paz MD EC CHEMISTRY ORDERABLES Final Result Performing Organization Address [facility] de Phone Number [facility] [address] [place] [address] * NON-STRESS TEST (05/30/2024 12:30 PM CDT) Provider Abstract EC PROCEDURES Final Resul t from Last 3 Mon[address] Insurance [address] [place] [id number] Care Teams Data Conversion Developer Relationship Specialty Start Date End Date Elsewhere, Pcp 05/30/24
--- OUTSIDE RECORDS SUMMARY | 2024-08-24 12:36 | XMS_ITS | Encounter Summary ---
Author Organization [facility] Address [address] [address] Phone Care Team Providers Care Trash Collector Truck Driver Name Role Phone Elsewhere, Pcp Unavailable Unavailable Encounter Details Date Type Department Care Team (Late st Contact Info) Description 05/31/2024 Scanned - Medical Reports [facility] [address] [place], [place] [id number] Abstract, Provider, Social History Tobacco Use Types [...] on filedocumented in this encounter Care Teams Trash Collector Truck Driver Relationship Specialty Start Date End Date Elsewhere, Pcp 05/30/24 documented as of this encounter
== END 2024-08-21 11:14 | disposition home or self-care (01) ==
LOC: NFLDREF 08-24 12:34
PROVIDERS: PCP Family Medicine; Referring Provider Family Medicine; Visit Provider Advanced Practice Midwife
DX: R39.15 Urgency of urination (principal); F53.0 Postpartum depression
CPT/HCPCS: 87086